=== PATIENT | female | born 1965 | race Caucasian/White ===

== ENCOUNTER 2018-07-29 23:01 | Emergency (ER) | payer MEDICAID ==
[~2018-07-29] VITALS: Ht 167.6 cm; Wt 73.0 kg
[2018-07-30] MEDS ORDERED: LIDOCAINE HCL/PF 1% 10 MG/ML 5ML VIAL IJ ONE (01:15)
[2018-07-30] MEDS ORDERED: TETANUS, DIPHTHERIA, PERTUSSIS VAC/PF 0.5ML (>7YR OLD) IM ONE (01:15)
[2018-07-30] MEDS ORDERED: BACITRACIN ZINC OINT UDPKT TOP ONE (01:15)
[2018-07-30] MEDS ORDERED: ACETAMINOPHEN WITH CODEINE 300/30MG TABLET PO ONE (01:15)
[2018-07-30 03:40] VITALS: BP 129/80
[2018-07-30] MEDS ORDERED: IBUPROFEN 800MG TABLET PO ONE (03:45)
== END 2018-07-30 03:41 | disposition home or self-care (01) ==
LOC: ER 23:50
DX: S01.511A Laceration without foreign body of lip, initial encounter (principal); S63.592A Other specified sprain of left wrist, initial encounter; W01.190A Fall on same level from slipping, tripping and stumbling with subsequent striking against furniture, initial encounter; Y93.89 Activity, other specified; Y92.098 Other place in other non-institutional residence as the place of occurrence of the external cause; Y99.8 Other external cause status; Z98.890 Other specified postprocedural states
CPT/HCPCS: 12011; 73110; 90471; 90715; 99284; J3490; Z7610

== ENCOUNTER 2018-12-23 14:34 | Inpatient (IN) | payer MEDICAID ==
[~2018-12-23] VITALS: Ht 157.5 cm; Wt 92.5 kg
[2018-12-24] MEDS ORDERED: NITROGLYCERIN OINT 1GM/INCH UDPKT TD ONE (00:45)
[2018-12-24] MEDS ORDERED: ASPIRIN 81MG TABLET PO ONE (00:45)
[2018-12-24 01:09] LABS: BASOPHILS % 0.5 % (0.0-2.0); EOSINOPHILS % 1.4 % (0.0-5.0); HEMATOCRIT. 40.1 % (36.0-48.0); HEMOGLOBIN. 13.3 g/dL (12.0-16.0); LYMPHOCYTES % 35.1 % (20.0-50.0); MEAN CORPUSCULAR HEMOGLOBIN 28.1 pg (28.0-32.0); MEAN CORPUSCULAR VOLUME 84.5 fL (81.0-99.0); MEAN PLATELET VOLUME 8.4 fl (7.4-10.4); MONOCYTES % 5.6 % (2.0-8.0); NEUTROPHILS % 57.4 % (40.0-76.0); PLATELET 336 x1000/uL (130-400); RED BLOOD CELL COUNT 4.74 mill/uL (4.2-5.4); RED CELL DISTRIBUTION WIDTH 14.1 % (11.6-14.6)
[2018-12-24 01:18] LABS: CHLORIDE 103 mEq/L (98-107)
[2018-12-24] MEDS ORDERED: SODIUM CHLORIDE 0.9% 1,000 ML IV ONE (01:24)
[2018-12-24] MEDS ORDERED: IOHEXOL-350 100 ML BOTTLE ONE (03:54)
[2018-12-24] MEDS ORDERED: MORPHINE SULFATE 10 MG/ML CPJ IV ONE (04:00)
[2018-12-24 09:51] VITALS: BP 90/49
[2018-12-24] MEDS ORDERED: LORAZEPAM 0.5MG TABLET PO PRN (11:45)
[2018-12-24] MEDS ORDERED: CLONIDINE 0.1MG TABLET PO PRN (11:45)
[2018-12-24] MEDS ORDERED: ACETAMINOPHEN 325MG TABLET PO PRN (11:45)
[2018-12-24] MEDS ORDERED: IPRATROPIUM/ALBUTEROL 0.5-3(2.5)MG/3ML NEB INH PRN (11:45)
[2018-12-24] MEDS ORDERED: HYDROCODONE/ACETAMINOPHEN 5/325MG TABLET PO PRN (11:45)
[2018-12-24] MEDS ORDERED: ONDANSETRON HCL 4MG/2ML INJ IV PRN (11:45)
[2018-12-24] MEDS ORDERED: MORPHINE SULFATE 4 MG/ML CPJ (NOT FOR IM USE) IV PRN (11:45)
[2018-12-24 12:00] VITALS: BP 95/55
[2018-12-24] MEDS: PANTOPRAZOLE 40MG DR TABLET PO SCH (12:31)
[2018-12-24 13:39] LABS: PHOSPHORUS 3.4 mg/dL (2.5-4.9)
[2018-12-24 13:41] LABS: LDL CHOLESTEROL 76 mg/dL (5-100)
[2018-12-24 13:42] LABS: CREATINE KINASE 92 IU/L (26-192)
[2018-12-24 13:45] LABS: HDL CHOLESTEROL 40 mg/dL (40-59)
[2018-12-24 13:47] LABS: CREATINE KINASE MB FRACTION < 1.0 ng/mL (0.5-3.6)
[2018-12-24 16:00] VITALS: BP 100/56
[2018-12-24 20:00] VITALS: BP 101/49
[2018-12-25] VITALS: BP 110/61
[2018-12-25 04:00] VITALS: BP 109/57
[2018-12-25] MEDS: PANTOPRAZOLE 40MG DR TABLET PO SCH (07:45)
[2018-12-25 08:19] LABS: BASOPHILS % 0.4 % (0.0-2.0); EOSINOPHILS % 1.3 % (0.0-5.0); HEMATOCRIT. 36.2 % (36.0-48.0); HEMOGLOBIN. 12.2 g/dL (12.0-16.0); LYMPHOCYTES % 26.5 % (20.0-50.0); MEAN CORPUSCULAR VOLUME 83.1 fL (81.0-99.0); MEAN PLATELET VOLUME 8.5 fl (7.4-10.4); MONOCYTES % 5.5 % (2.0-8.0); NEUTROPHILS % 66.3 % (40.0-76.0); PLATELET 290 x1000/uL (130-400); RED BLOOD CELL COUNT 4.35 mill/uL (4.2-5.4); RED CELL DISTRIBUTION WIDTH 13.9 % (11.6-14.6)
[2018-12-25 08:42] LABS: CHLORIDE 105 mEq/L (98-107)
[2018-12-25 16:30] VITALS: BP 107/69
== END 2018-12-25 17:30 | disposition home or self-care (01) | DRG 203 ==
LOC: ER 14:34 → 8WST 12-24 01:30 → EDBEDREQ 12-24 01:31 → ENRESERV 12-24 07:08
PROVIDERS: ADMIT Internal Medicine; ATTEND Internal Medicine
DX: M94.0 Chondrocostal junction syndrome [Tietze] (principal); E66.9 Obesity, unspecified; R73.03 Prediabetes; R79.1 Abnormal coagulation profile; Z82.49 Family history of ischemic heart disease and other diseases of the circulatory system; Z98.891 History of uterine scar from previous surgery; Z68.37 Body mass index [BMI] 37.0-37.9, adult
CPT/HCPCS: 36415; 71045; 71275; 80048; 80061; 82550; 82553; 83036; 83735; 83880; 84100; 84443; 84484; 85379; 93005; 93306; 96374; 99285; J2270; J2405; J7030; Q9967

== ENCOUNTER 2021-03-24 17:30 | Emergency (ER) | payer MEDICAID ==
[~2021-03-24] VITALS: Ht 152.4 cm; Wt 72.0 kg
[2021-03-24 19:18] LABS: BASOPHILS % 0.3 % (0.0-2.0); EOSINOPHILS % 1.1 % (0.0-5.0); HEMOGLOBIN. 13.2 g/dL (12.0-16.0); MEAN CORPUSCULAR HEMOGLOBIN 28.2 pg (28.0-32.0); MEAN CORPUSCULAR VOLUME 83.6 fL (81.0-99.0); MEAN PLATELET VOLUME 8.5 fl (7.4-10.4); MONOCYTES % 5.1 % (2.0-8.0); NEUTROPHILS % 72.5 % (40.0-76.0); PLATELET 343 x1000/uL (130-400); RED BLOOD CELL COUNT 4.66 mill/uL (4.2-5.4); RED CELL DISTRIBUTION WIDTH 13.4 % (11.6-14.6)
[2021-03-24 19:25] LABS: CHLORIDE 106 mEq/L (98-107)
[2021-03-24] MEDS ORDERED: IBUPROFEN 800MG TABLET PO ONE (20:00)
[2021-03-24] MEDS ORDERED: ACETAMINOPHEN 325MG TABLET PO ONE (20:00)
[2021-03-24 20:52] VITALS: BP 100/59
== END 2021-03-24 20:53 | disposition home or self-care (01) ==
LOC: ER 17:30
DX: R07.89 Other chest pain (principal)
CPT/HCPCS: 36415; 71045; 80053; 83880; 84484; 85025; 93005; 99285

== ENCOUNTER 2025-08-17 10:59 | Emergency (ER) | payer SELFPAY ==
[~2025-08-17] VITALS: Ht 157.5 cm; Wt 82.0 kg
[~2025-08-17 10:59] MED LIST: LEVO-65 MT; MECL-299 MT
[2025-08-17 11:08] VITALS: O2SAT 98
[2025-08-17] MEDS: LIDOCAINE 5% PATCH TOP STA (12:21)
[2025-08-17] MEDS: IBUPROFEN 600MG TABLET PO ONE (12:21)
[2025-08-17 12:33] LABS: BASOPHILS % 0.6 % (0.0-2.0); EOSINOPHILS % 1.7 % (0.0-5.0); HEMATOCRIT. 39.4 % (36.0-48.0); HEMOGLOBIN. 13.1 g/dL (12.0-16.0); LYMPHOCYTES % 22.5 % (20.0-50.0); MEAN PLATELET VOLUME 8.1 fl (7.4-10.4); MONOCYTES % 4.3 % (2.0-8.0); NEUTROPHILS % 70.9 % (40.0-76.0); PLATELET 336 x1000/uL (130-400); RED BLOOD CELL COUNT 4.75 mill/uL (4.2-5.4); RED CELL DISTRIBUTION WIDTH 13.6 % (11.6-14.6)
[2025-08-17 12:46] LABS: CREATININE 0.7 mg/dL (0.6-1.0); UREA NITROGEN BLOOD 15 mg/dL (9-23)
[2025-08-17 12:48] LABS: ASPARTATE AMINOTRANSFERASE 22 IU/L (<34); BILIRUBIN DIRECT 0.1 mg/dL (<=3.0)
[2025-08-17 12:49] LABS: BILIRUBIN TOTAL 0.5 mg/dL (0.1-1.0); PROTEIN TOTAL 8.1 g/dL (6.0-8.3)
[2025-08-17] MEDS ORDERED: LIDO700A30 TP (15:16)
[2025-08-17] MEDS ORDERED: IBUP-1455 MT (15:16)
[2025-08-17 15:27] VITALS: BP 130/70; PULSE 68; RESP 15; TEMP 36.8; O2SAT 98
== END 2025-08-17 15:28 | disposition home or self-care (01) ==
LOC: ER 10:59
DX: R10.32 Left lower quadrant pain (principal); N28.1 Cyst of kidney, acquired; K57.90 Diverticulosis of intestine, part unspecified, without perforation or abscess without bleeding; D25.9 Leiomyoma of uterus, unspecified; M43.16 Spondylolisthesis, lumbar region; R93.89 Abnormal findings on diagnostic imaging of other specified body structures
CPT/HCPCS: 36415; 74176; 76830; 76856; 80048; 80076; 85025; 99284